=== PATIENT | female | born 1950 | race Caucasian/White ===

== ENCOUNTER 2023-01-01 07:55 | Outpatient (CLI) | payer MEDICARE, OTHER, SELFPAY | END 2023-01-01 07:56 | disposition home or self-care (01) | PROVIDERS: PCP Physician Assistant; Visit Provider Family Medicine | DX: M54.16 Radiculopathy, lumbar region (principal); M48.062 Spinal stenosis, lumbar region with neurogenic claudication | CPT/HCPCS: 64483; Q9966 ==

== ENCOUNTER 2023-02-06 12:41 | Outpatient (CLI) | payer MEDICARE, OTHER, SELFPAY ==
--- NOTE | 2023-02-06 13:00 | MR_ITS ---
[address] [address] Phone:?[phone] Fax:?[phone] Referring Physician Information: Rafa Ellis M.D. [address] [place] [id number] Phone:?[phone] Fax:?[phone] Patient:Ever Germain D.O.B:?1950 Sex:?Female Phone:?[phone] [facility] MRN:?[id number] Exam Date:?02/06/2023 ? EXAM: MRI EXAMINATION OF THE RIGHT SHOULDER CLINICAL INFORMATION: Chronic right shoulder pain. History of injury. No history of surgery to this area. Evaluate rotator cuff tear. Unresponsive to conservative treatment. TECHNICAL INFORMATION: Coronal STIR as well as axial, sagittal and coronal PD and T2-weighted images were acquired. No prior studies for comparison. INTERPRETATION: Bones: There is no Hill-Sachs impaction deformity. No other evidence for an occult fracture or osseous contusion. Rotator Cuff: There is an abnormal appearance as seen on series 8 image 7 as well as series 4 images 8 through 12 of a 1.9 cm AP full-thickness tear involving nearly the entirety of the supraspinatus tendon situated 5 mm proximal to the level of the insertional footprint. Torn tendon fibers are maximally retracted to the mid humeral head level. There is no evidence for muscle belly atrophy. Series 8 image 11 and series 4 image 14 demonstrate an additional 0.4 cm AP by 0.9 cm mediolateral undersurface partial-thickness tear of the supraspinatus tendon medial to the mid humeral head level and involving one half of the tendon fiber thickness. Moderate to marked infraspinatus tendinopathy. Series 8 image 14 as well as series 4 image 19 demonstrate a 2.1 cm ganglion cyst within the level of the distal muscle belly. The teres minor tendon is intact. Mild to moderate subscapularis tendinopathy. No appreciable rotator cuff muscle belly atrophy. Coracoacromial arch: There is no discrete subacromial osseous spur. The bony acromiohumeral interval is measuring 7 mm. There is no thickening identified of the coracoacromial ligament. Acromioclavicular joint: There is a marked appearance of AC joint DJD. No deformity of the underlying supraspinatus tendon. Biceps tendon: The long head biceps tendon is intact and nondisplaced from the bicipital groove. There is a moderate to marked appearance of intra-articular tendinopathy. Glenohumeral joint and labrum: There is a small to moderate glenohumeral joint effusion. Synovitis, without evidence for a loose body. Osteochondral surfaces appear relatively preserved. No discrete SLAP tear. No other definite evidence for labral tear. No discrete paralabral cyst is identified. CONCLUSION: 1. There is a full-thickness tear involving nearly the entirety of the supraspinatus tendon and is situated 5 mm proximal to the tendon insertion. Tendon retraction is to the mid humeral head level. There is an additional small undersurface partial-thickness tear of the tendon just medial to the mid humeral head level and involving one half of the tendon fiber thickness. No muscle belly atrophy. 2. Moderate to marked infraspinatus tendinopathy. There is a 2.1 cm ganglion cyst within the distal muscle belly. 3. Mild to moderate subscapularis tendinopathy. 4. 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 5. Moderate to marked intra-articular long head biceps tendinopathy. 5. No appreciable glenohumeral chondromalacia. There is a small to moderate joint effusion. KES Electronically signed on 02/07/2023 7:17:00 AM by Ankur Murillo M.D.
== END 2023-02-06 12:42 | disposition home or self-care (01) ==
LOC: MRI 12:43
PROVIDERS: Visit Provider Orthopaedic Surgery
DX: M25.511 Pain in right shoulder (principal); M75.101 Unspecified rotator cuff tear or rupture of right shoulder, not specified as traumatic; M19.011 Primary osteoarthritis, right shoulder; M25.411 Effusion, right shoulder
CPT/HCPCS: 73221